=== PATIENT | male | born 1975 | race Caucasian/White ===

== ENCOUNTER 2020-06-17 12:28 | Day surgery (SDC) | payer MEDICAID ==
[~2020-06-17] VITALS: Ht 175.3 cm; Wt 64.0 kg
[2020-06-17] VITALS (10 sets, daily range): BP systolic 143–189; BP diastolic 89–116
[~2020-06-17 12:28] MED LIST: BENA20TA2 PO; CLON-473 PO; HYDR-4069 PO; HYDR-4353 PO; KEP500T PO; LORA0.5T PO; SEVE800T8 PO; TACR1CAP PO
[2020-06-17] MEDS ORDERED: tPA-cathflo 2 MG/2 ml IV flush ONE (13:17)
[2020-06-17 13:39] LABS: BASOPHILS # (AUTO) 0.1 X10'3 (0-0.2); BASOPHILS % (AUTO) 1.4 % (0-1); EOSINOPHILS # (AUTO) 0.5 X10'3 (0-0.9); EOSINOPHILS % (AUTO) 7.3 % (0-6); HEMATOCRIT 26.2 % (42.0-52.0); HEMOGLOBIN 8.3 g/dl (14.0-17.9); LYMPHOCYTES # (AUTO) 1.2 X10'3 (1.1-4.8); MEAN CORPUSCULAR HEMOGLOBIN 25.6 PG (27.0-31.0); MEAN CORPUSCULAR HGB CONC 31.7 g/dL (33.0-36.5); MEAN CORPUSCULAR VOLUME 80.8 FL (78-98); MEAN PLATELET VOLUME 8.3 FL (7.4-10.4); MONOCYTES # (AUTO) 0.4 X10'3 (0-0.9); MONOCYTES % (AUTO) 6.2 % (2-12); NEUTROPHILS # (AUTO) 4.6 X10'3 (1.8-7.7); NEUTROPHILS % (AUTO) 67.1 % (42-75); PLATELET COUNT 244 X10'3 (140-440); RED BLOOD COUNT 3.24 X10'6 (4.70-6.10); RED CELL DISTRIBUTION WIDTH 21.7 % (11.5-14.5); WHITE BLOOD COUNT 6.9 X10'3 (4.5-11.0)
[2020-06-17 13:43] LABS: ALBUMIN 2.8 G/DL (3.4-5.0); ANION GAP 18 (8-16); BLOOD UREA NITROGEN 111 MG/DL (7-18); CALCIUM 8.4 MG/DL (8.5-10.1); CHLORIDE 99 MMOL/L (99-107); CREATININE 10.11 MG/DL (0.60-1.10); GLUCOSE 83 MG/DL (70-104); SODIUM 134 MMOL/L (135-145); TOTAL CARBON DIOXIDE 17.2 MMOL/L (24-32); eGFR 6 ML/MIN
[2020-06-17 13:48] LABS: POTASSIUM 8.1 MMOL/L (3.5-5.1)
[2020-06-17] MEDS ORDERED: calcium chloride 100 MG/1 ML inj IV ONE (14:05)
[2020-06-17] MEDS ORDERED: insulin regular, human U-100 3ml vial - multi-dose IV ONE (14:05)
[2020-06-17] MEDS ORDERED: albuterol 2.5 MG/3 ML nebule CONTNEB PRN (14:05)
[2020-06-17] MEDS ORDERED: dextrose 50%-water 50ml dispensing syringe IV ONE (14:05)
[2020-06-17] MEDS ORDERED: PATIROMER CALCIUM SORBITEX 8.4 GM POWD.PACK PO SCH (14:05)
[2020-06-17] MEDS ORDERED: sodium bicarbonate (8.4%) 1 mEq/ml syringe IV ONE (14:05)
--- NOTE | 2020-06-17 14:05 | NUR ---
DR RICE CALLED, REPORTED POTASSIUM LEVEL OF 8.1. STATES WILL CALL DIALYSIS REGISTERED NURSE AND GET BACK TO ME. DR RICE ARRIVED IN UNIT. REVIEWED EACH ORDER FROM DR SIMEON. IN PROGRESS. PT VS STABLE. RT PAGED. Addendum: 06/17/20 at 1542 by Sada Meza RN Amended: Links added.
[2020-06-17 14:15] LABS: ROULEAUX 1+
--- NOTE | 2020-06-17 14:15 | NUR ---
CALL TO PHARMACY FOR MEDICATION ORDERS TO BE FILL, STAT NEED. PHARMACIST STATES UNDERSTANDING Addendum: 06/17/20 at 1558 by Sada Meza RN Amended: Links added.
[2020-06-17 14:16] LABS: ANISOCYTOSIS 3+; PLATELET ESTIMATE NORMAL
[2020-06-17 14:17] LABS: LARGE PLATELETS FEW
[2020-06-17 14:18] LABS: HYPOCHROMASIA 1+; SCHISTOCYTES FEW
--- NOTE | 2020-06-17 16:00 | NUR ---
PT 02 SAT IN MID 90'S, AFTER RT TX. FOR HIGH POTASSIUM. Addendum: 06/17/20 at 1746 by Sada Meza RN Amended: Links added.
--- NOTE | 2020-06-17 16:00 | NUR ---
CALL TO [facility] DR RICE ALREADY AWARE OF REPEATED POTASSIUM LEVEL OF 7.[address] CHURCHILL ORDERS COMPLETED. DR RICE CONTACTING DR SIMEON TO CONSULT FOR NEXT ACTION. [facility] CALLED BACK, PT TO TO TO [facility] FOR TEMPORARY DIALYSIS CATHETER. THEN TO BE ADMITTED. Addendum: 06/17/20 at 1603 by Sada Meza RN Amended: Links added.
[2020-06-17] MEDS ORDERED: LIDOcaine 1%/PF 5ML 10 MG/ML VIAL ONE (16:05)
[2020-06-17] MEDS ORDERED: fentaNYL/PF 50MCG/1 ML 2ML syringe ONE (16:05)
[2020-06-17] MEDS ORDERED: heparin 1,000unit/ml 10ml vial 10 ML ONE (16:06)
[2020-06-17] MEDS ORDERED: normal saline 1000ml 250 ML IV PRN (18:20)
[2020-06-17] MEDS ORDERED: bisacodyl 10mg suppository rectal RC PRN (18:20)
[2020-06-17] MEDS ORDERED: heparin 1,000 units/ml 10ml inj HE ONE ×2 (18:20)
[2020-06-17] MEDS ORDERED: ondansetron/PF 4mg/2ml inj IV PRN (18:20)
[2020-06-17] MEDS ORDERED: heparin 1,000unit/ml 10ml vial 10 ML IV ONE (18:20)
[2020-06-17] MEDS ORDERED: acetaminophen 325mg tablet PO PRN (18:20)
[2020-06-17] MEDS ORDERED: ipratropium/albuterol 3ml nebule NEB PRN (18:20)
[2020-06-17] MEDS ORDERED: epoetin 20,000 units/ml inj IV ONE (18:20)
[2020-06-17] MEDS ORDERED: CINA30TA7 PO (19:30)
[2020-06-17] MEDS ORDERED: LORA-268 PO (19:30)
[2020-06-17] MEDS ORDERED: CLON0.2T PO (19:30)
[2020-06-17] MEDS ORDERED: NIFE60TA79 PO (19:30)
[2020-06-17] MEDS ORDERED: docusate sod 100mg capsule PO SCH (20:00)
[2020-06-17] MEDS ORDERED: HYDROcodone/acetaminophen 10/325mg tab PO SCH (20:00)
[2020-06-17] MEDS ORDERED: tacrolimus anhydrous 1mg capsule PO SCH (20:00)
[2020-06-17] MEDS ORDERED: cloNIDine 0.1 mg tablet PO SCH (20:00)
[2020-06-17] MEDS ORDERED: LORazepam 0.5 MG tablet PO SCH (20:00)
[2020-06-17] MEDS ORDERED: heparin, porcine 5000 units/ml vial SQ SCH (20:00)
[2020-06-17] MEDS ORDERED: levetiracetam 250mg tablet PO SCH (20:00)
[2020-06-17] MEDS ORDERED: ipratropium/albuterol 3ml nebule NEB SCH (21:00)
[2020-06-18] MEDS ORDERED: sevelamer carbonate 800mg tablet PO SCH
[2020-06-18] MEDS ORDERED: lisinopril 20mg tablet PO SCH (08:00)
== END 2020-06-17 16:17 | disposition home or self-care (01) ==
LOC: SSTAY O 12:28
PROVIDERS: ATTEND Radiology Diagnostic Radiology
DX: N18.9 Chronic kidney disease, unspecified (principal); T82.858A Stenosis of other vascular prosthetic devices, implants and grafts, initial encounter; Z79.899 Other long term (current) drug therapy; Z83.3 Family history of diabetes mellitus; Y83.2 Surgical operation with anastomosis, bypass or graft as the cause of abnormal reaction of the patient, or of later complication, without mention of misadventure at the time of the procedure; Y92.89 Other specified places as the place of occurrence of the external cause
CPT/HCPCS: 36415; 36556; 76937; 77001; 80048; 82948; 84132; 85025; 94640; C1894; J1644; J2997; J3010; 85008; 99152; 99153; A9270; J1815

== ENCOUNTER 2020-06-17 16:19 | Inpatient (IN) | payer MEDICAID ==
[~2020-06-17] VITALS: Ht 175.3 cm; Wt 64.0 kg
[2020-06-17] MEDS ORDERED: midazolam 2 mg/2 ml injection ONE (16:22)
[2020-06-17] MEDS ORDERED: vancomycin/NS 1 GM ADD-VANTAGE 250 ML IV PRN (16:30)
[2020-06-17] MEDS ORDERED: epoetin 20,000 units/ml inj IV ONE (16:30)
[2020-06-17] MEDS ORDERED: bisacodyl 10mg suppository rectal RC PRN (16:30)
[2020-06-17] MEDS ORDERED: acetaminophen 325mg tablet PO PRN (16:30)
[2020-06-17] MEDS ORDERED: ondansetron/PF 4mg/2ml inj IV PRN (16:30)
[2020-06-17] MEDS ORDERED: heparin 1,000unit/ml 10ml vial 10 ML IV ONE (16:30)
[2020-06-17] MEDS ORDERED: normal saline 1000ml 250 ML IV PRN (16:30)
[2020-06-17] MEDS ORDERED: heparin 1,000 units/ml 10ml inj HE ONE ×2 (16:35)
[2020-06-17 19:00] VITALS: BP 200/115
[2020-06-17] MEDS ORDERED: vancomycin/NS 1 GM ADD-VANTAGE 250 ML IV ONE ×2 (19:00→19:10)
[2020-06-17] MEDS ORDERED: CLON0.2T PO (19:30)
[2020-06-17] MEDS ORDERED: NIFE60TA79 PO (19:30)
[2020-06-17] MEDS ORDERED: LORA-268 PO (19:30)
[2020-06-17] MEDS ORDERED: CINA30TA7 PO (19:30)
[2020-06-17] MEDS ORDERED: LORazepam 0.5 MG tablet PO PRN ×2 (20:00→20:03)
[2020-06-17] MEDS ORDERED: HYDROcodone/acetaminophen 10/325mg tab PO SCH (20:00)
[2020-06-17] MEDS: levetiracetam 250mg tablet PO SCH (21:08)
[2020-06-17] MEDS: heparin, porcine 5000 units/ml vial SQ SCH (21:08)
[2020-06-17] MEDS: docusate sod 100mg capsule PO SCH (21:09)
[2020-06-17] MEDS: cloNIDine 0.1 mg tablet PO SCH (21:09)
[2020-06-17] MEDS: NIFEdipine XL 30mg tablet PO SCH (21:10)
[2020-06-17 22:16] VITALS: BP 170/115
[2020-06-17] MEDS: normal saline 1000ml 1,000 ML IV SCH (22:46)
[2020-06-17] MEDS: lisinopril 20mg tablet PO SCH (22:46)
[2020-06-18] VITALS (7 sets, daily range): BP systolic 145–200; BP diastolic 91–120
--- NOTE | 2020-06-18 06:00 | NUR ---
Patient in room PCU 3012. I have received report from AALIYAH GARCIA and had the opportunity to ask questions and assume patient care.
--- NOTE | 2020-06-18 06:10 | NUR ---
Patient in room PCU 3012. I have received report from Elsie GARCIA and had the opportunity to ask questions and assume patient care.
--- NOTE | 2020-06-18 06:16 | NUR ---
Problems reprioritized. Patient report given, questions answered & plan of care reviewed with Lisandro and Sherri Rns.
[2020-06-18] MEDS: cloNIDine 0.1 mg tablet PO SCH ×3 (06:41→20:16)
[2020-06-18] MEDS: NIFEdipine XL 30mg tablet PO SCH ×2 (06:41→20:16)
[2020-06-18] MEDS: HYDROcodone/acetaminophen 10/325mg tab PO PRN ×2 (06:48→17:14)
[2020-06-18 07:36] LABS: BASOPHILS % (AUTO) 0.8 % (0-1); EOSINOPHILS # (AUTO) 0.1 X10'3 (0-0.9); EOSINOPHILS % (AUTO) 3.1 % (0-6); HEMATOCRIT 27.3 % (42.0-52.0); HEMOGLOBIN 8.7 g/dl (14.0-17.9); LYMPHOCYTES # (AUTO) 0.8 X10'3 (1.1-4.8); LYMPHOCYTES % (AUTO) 17.7 % (21-51); MEAN CORPUSCULAR HEMOGLOBIN 25.3 PG (27.0-31.0); MEAN CORPUSCULAR HGB CONC 31.8 g/dL (33.0-36.5); MEAN CORPUSCULAR VOLUME 79.6 FL (78-98); MEAN PLATELET VOLUME 8.4 FL (7.4-10.4); MONOCYTES # (AUTO) 0.2 X10'3 (0-0.9); MONOCYTES % (AUTO) 3.8 % (2-12); NEUTROPHILS # (AUTO) 3.5 X10'3 (1.8-7.7); NEUTROPHILS % (AUTO) 74.6 % (42-75); PLATELET COUNT 204 X10'3 (140-440); RED BLOOD COUNT 3.43 X10'6 (4.70-6.10); RED CELL DISTRIBUTION WIDTH 22.1 % (11.5-14.5); WHITE BLOOD COUNT 4.7 X10'3 (4.5-11.0)
[2020-06-18 07:51] LABS: ALANINE AMINOTRANSFERASE 27 U/L (12-78); ALBUMIN 2.7 G/DL (3.4-5.0); ALBUMIN/GLOBULIN RATIO 0.4 (1.1-1.5); ALKALINE PHOSPHATASE 253 IU/L (46-116); ANION GAP 14 (8-16); ASPARTATE AMINO TRANSFERASE 30 U/L (10-37); BILIRUBIN,TOTAL 0.5 MG/DL (0.1-1.0); BLOOD UREA NITROGEN 51 MG/DL (7-18); BUN/CREATININE RATIO 8.9 (5.4-32.0); CALCIUM 8.4 MG/DL (8.5-10.1); CHLORIDE 100 MMOL/L (99-107); CREATININE 5.75 MG/DL (0.60-1.10); GLUCOSE 78 MG/DL (70-104); MAGNESIUM 2.5 MG/DL (1.5-2.4); POTASSIUM 5.8 MMOL/L (3.5-5.1); SODIUM 137 MMOL/L (135-145); TOTAL CARBON DIOXIDE 23.3 MMOL/L (24-32); TOTAL PROTEIN 9.3 G/DL (6.4-8.2); VANCOMYCIN,RANDOM 27.5 UG/ML; eGFR 11 ML/MIN
[2020-06-18] MEDS: lisinopril 20mg tablet PO SCH ×2 (08:00→17:13)
[2020-06-18] MEDS: cinacalcet 30mg tablet PO SCH (08:51)
[2020-06-18] MEDS: sevelamer carbonate 800mg tablet PO SCH ×3 (08:51→18:53)
[2020-06-18] MEDS: heparin, porcine 5000 units/ml vial SQ SCH ×2 (08:51→18:16)
[2020-06-18] MEDS: levetiracetam 250mg tablet PO SCH ×2 (08:51→20:16)
[2020-06-18] MEDS: docusate sod 100mg capsule PO SCH ×2 (08:51→20:17)
[2020-06-18] MEDS: normal saline 1000ml 1,000 ML IV SCH (08:59)
[2020-06-18 09:21] LABS: ANISOCYTOSIS 3+; HYPOCHROMASIA 1+; MICROCYTOSIS 1+; PLATELET ESTIMATE NORMAL; SCHISTOCYTES FEW
--- NOTE | 2020-06-18 18:00 | NUR ---
Problems reprioritized. Patient report given, questions answered & plan of care reviewed with Renee GARCIA.
--- NOTE | 2020-06-18 18:00 | NUR ---
Orientee documentation: I have reviewed and agree with all interventions, assessments performed and documented by Heena GARCIA.
--- NOTE | 2020-06-18 18:15 | NUR ---
Problems reprioritized. Patient report given, questions answered & plan of care reviewed with
--- NOTE | 2020-06-18 18:30 | NUR ---
Patient in room PCU 3012. I have received report from JLRN /MARISOL RN and had the opportunity to ask questions and assume patient care.
[2020-06-18] MEDS: lactobacillus rhamnosus 10,000 MMU CELLS/CAPSULE PO SCH (20:16)
[2020-06-19 02:00] VITALS: BP 145/93
[2020-06-19 06:00] VITALS: BP 172/105
--- NOTE | 2020-06-19 06:00 | NUR ---
Patient in room PCU 3012. I have received report from JULIA and had the opportunity to ask questions and assume patient care.
--- NOTE | 2020-06-19 06:05 | NUR ---
Patient in room PCU 3012. I have received report from Julia GARCIA and had the opportunity to ask questions and assume patient care.
--- NOTE | 2020-06-19 06:08 | NUR ---
Problems reprioritized. Patient report given, questions answered & plan of care reviewed with JOSE PARIKH AND JOSE DAMON.
[2020-06-19 07:22] LABS: BASOPHILS # (AUTO) 0.1 X10'3 (0-0.2); BASOPHILS % (AUTO) 1.8 % (0-1); EOSINOPHILS % (AUTO) 1.1 % (0-6); HEMATOCRIT 24.2 % (42.0-52.0); HEMOGLOBIN 7.8 g/dl (14.0-17.9); LYMPHOCYTES # (AUTO) 1.1 X10'3 (1.1-4.8); LYMPHOCYTES % (AUTO) 26.8 % (21-51); MEAN CORPUSCULAR HEMOGLOBIN 25.5 PG (27.0-31.0); MEAN CORPUSCULAR VOLUME 79.5 FL (78-98); MEAN PLATELET VOLUME 7.1 FL (7.4-10.4); MONOCYTES # (AUTO) 0.2 X10'3 (0-0.9); MONOCYTES % (AUTO) 5.5 % (2-12); NEUTROPHILS # (AUTO) 2.7 X10'3 (1.8-7.7); NEUTROPHILS % (AUTO) 64.8 % (42-75); PLATELET COUNT 162 X10'3 (140-440); RED BLOOD COUNT 3.05 X10'6 (4.70-6.10); RED CELL DISTRIBUTION WIDTH 21.8 % (11.5-14.5); WHITE BLOOD COUNT 4.1 X10'3 (4.5-11.0)
[2020-06-19 07:40] LABS: ALANINE AMINOTRANSFERASE 16 U/L (12-78); ALBUMIN 2.4 G/DL (3.4-5.0); ALBUMIN/GLOBULIN RATIO 0.4 (1.1-1.5); ALKALINE PHOSPHATASE 205 IU/L (46-116); ANION GAP 16 (8-16); ASPARTATE AMINO TRANSFERASE 26 U/L (10-37); BILIRUBIN,TOTAL 0.4 MG/DL (0.1-1.0); BLOOD UREA NITROGEN 78 MG/DL (7-18); BUN/CREATININE RATIO 9.7 (5.4-32.0); CALCIUM 8.4 MG/DL (8.5-10.1); CHLORIDE 97 MMOL/L (99-107); CREATININE 8.08 MG/DL (0.60-1.10); GLUCOSE 76 MG/DL (70-104); MAGNESIUM 2.6 MG/DL (1.5-2.4); PHOSPHORUS 5.5 MG/DL (2.3-4.5); SODIUM 133 MMOL/L (135-145); TOTAL CARBON DIOXIDE 20.2 MMOL/L (24-32); TOTAL PROTEIN 8.4 G/DL (6.4-8.2); VANCOMYCIN,RANDOM 22.5 UG/ML; eGFR 7 ML/MIN
[2020-06-19 07:47] LABS: POTASSIUM 6.6 MMOL/L (3.5-5.1)
[2020-06-19] MEDS ORDERED: heparin 1,000 units/ml 10ml inj HE ONE ×2 (08:00)
[2020-06-19] MEDS: heparin, porcine 5000 units/ml vial SQ SCH (08:00)
[2020-06-19] MEDS ORDERED: normal saline 1000ml 250 ML IV PRN (08:00)
[2020-06-19] MEDS ORDERED: heparin 1,000unit/ml 10ml vial 10 ML IV ONE (08:00)
[2020-06-19] MEDS: sevelamer carbonate 800mg tablet PO SCH ×3 (08:00→15:34)
[2020-06-19] MEDS ORDERED: epoetin 20,000 units/ml inj IV ONE (08:00)
--- NOTE | 2020-06-19 08:15 | NUR ---
Spoke with Angio nurse concerning Pt's scheduled fistulogram today. Pt's morning potassium is 6.6. Pt will first receive HD this morning, followed by a potassium recheck after HD. Pt will then go for fistulogram in afternoon.
[2020-06-19 08:49] LABS: ANISOCYTOSIS 3+; HYPOCHROMASIA 1+; MICROCYTOSIS 1+; PLATELET ESTIMATE NORMAL
[2020-06-19 08:50] LABS: SCHISTOCYTES FEW
[2020-06-19 08:51] LABS: POLYCHROMASIA FEW
[2020-06-19] MEDS: cinacalcet 30mg tablet PO SCH (09:04)
[2020-06-19] MEDS: lactobacillus rhamnosus 10,000 MMU CELLS/CAPSULE PO SCH (09:04)
[2020-06-19] MEDS: levetiracetam 250mg tablet PO SCH (09:05)
[2020-06-19] MEDS: docusate sod 100mg capsule PO SCH (09:07)
[2020-06-19] MEDS: lisinopril 20mg tablet PO SCH (09:07)
[2020-06-19] MEDS: NIFEdipine XL 30mg tablet PO SCH (09:07)
[2020-06-19] MEDS: cloNIDine 0.1 mg tablet PO SCH ×2 (09:08→15:35)
--- NOTE | 2020-06-19 09:08 | NUR ---
Spoke with dialysis nurse concerning Pt's morning blood pressure meds. Pt's current BP is 201/100. Okayed by Dialysis nurse to give all morning BP meds: catapres .4mg, lininopril 20mg and Procardia XL 60mg.
[2020-06-19] MEDS ORDERED: tPA-cathflo 2 MG/2 ml IV flush ONE (09:13)
[2020-06-19] MEDS ORDERED: LIDOcaine 1%/PF 5ML 10 MG/ML VIAL ONE ×2 (09:14→13:02)
[2020-06-19 11:00] VITALS: BP 149/100
[2020-06-19 11:55] LABS: HBSAG SCREEN Negative (Negative)
[2020-06-19] MEDS ORDERED: midazolam 2 mg/2 ml injection ONE ×3 (13:02→13:44)
[2020-06-19] MEDS ORDERED: fentaNYL/PF 50MCG/1 ML 2ML syringe ONE ×2 (13:03→13:44)
[2020-06-19] MEDS ORDERED: iohexol 300 MG/1 ML 50ml polymer ONE (13:03)
[2020-06-19] MEDS ORDERED: heparin 1,000 UNITS/NS 500ml 500 ML ONE (13:03)
[2020-06-19] MEDS ORDERED: iohexol 300mg/ml 100ml inj. ONE (13:45)
--- NOTE | 2020-06-19 14:30 | NUR ---
Pt returned from Angio. Harjinder cath removed and dressing applied. Dressing CDI. Pt will remain flat in bed for 3 hours. Vitals WNL. Will continue to monitor Pt.
[2020-06-19] MEDS ORDERED: TACR1CAP24 PO (15:41)
--- NOTE | 2020-06-19 17:20 | NUR ---
Pt DC'd home with brother. IV removed, canula intact. Tele-box removed and returned to tele-tech. Per Dr. Hankins; Pt is stable for DC. Pt alert and oriented and vitals WNL. DC paperwork printed out and gone over with Pt. Allowed Pt to ask questions concerning DC and then answered them. Pt will have Dialysis this Wednesday at the clinic he goes to, he will also continue to get his Vancomycin during his HD. Pt's belongings gathered and sent with Pt. Pt wheeled down to lobby in wheelchair by nurse. Pt left with brother in private vehicle.
[2020-06-20] MEDS ORDERED: VANCOMYCIN LEVEL IV SCH (03:00)
== END 2020-06-19 17:00 | disposition home or self-care (01) | DRG 182 ==
LOC: MED 3N 16:30 → PCU 3S 18:38
PROVIDERS: ADMIT Internal Medicine Critical Care Medicine; ATTEND Internal Medicine Critical Care Medicine
PROC: 027V3ZZ Dilation of Superior Vena Cava, Percutaneous Approach (ICD-10-PCS; principal; 2020-06-19)
PROC: B5181ZA Fluoroscopy of Superior Vena Cava using Low Osmolar Contrast, Guidance (ICD-10-PCS; 2020-06-19)
PROC: 3E03317 Introduction of Other Thrombolytic into Peripheral Vein, Percutaneous Approach (ICD-10-PCS; 2020-06-19)
PROC: 03773ZZ Dilation of Right Brachial Artery, Percutaneous Approach (ICD-10-PCS; 2020-06-19)
DX: T82.818A Embolism due to vascular prosthetic devices, implants and grafts, initial encounter (principal); E87.5 Hyperkalemia; Z99.2 Dependence on renal dialysis; Z83.3 Family history of diabetes mellitus; F17.210 Nicotine dependence, cigarettes, uncomplicated; I12.0 Hypertensive chronic kidney disease with stage 5 chronic kidney disease or end stage renal disease; N18.6 End stage renal disease; Y83.2 Surgical operation with anastomosis, bypass or graft as the cause of abnormal reaction of the patient, or of later complication, without mention of misadventure at the time of the procedure; Y92.89 Other specified places as the place of occurrence of the external cause; F41.9 Anxiety disorder, unspecified; Z94.0 Kidney transplant status; Z20.828 Contact with and (suspected) exposure to other viral communicable diseases
CPT/HCPCS: 36415; 36556; 36902; 76937; 77001; 80048; 80053; 80202; 82948; 83735; 84100; 84132; 85008; 85025; 87081; 87340; 94640; 97161; 97530; 99152; 99153; A9270; C1725; C1769; C1894; G0378; J0604; J1644; J1815; J2250; J2997; J3010; J3370; J7030; Q4081; Q9967

== ENCOUNTER 2020-12-16 08:38 | Day surgery (SDC) | payer MEDICAID ==
[~2020-12-16] VITALS: Ht 175.3 cm; Wt 63.8 kg
[~2020-12-16 08:38] MED LIST changes: +CINA30TA7 PO; -CLON-473 PO; +CLON0.2T PO; -HYDR-4069 PO; +LORA-268 PO; -LORA0.5T PO; +NIFE60TA79 PO; -TACR1CAP PO; +TACR1CAP24 PO
[2020-12-16 08:50] VITALS: BP 192/130
[2020-12-16] MEDS ORDERED: normal saline 1000ml 1,000 ML IV SCH (09:05)
[2020-12-16 09:44] LABS: BASOPHILS % (AUTO) 0.5 % (0-1); EOSINOPHILS # (AUTO) 0.5 X10'3 (0-0.9); EOSINOPHILS % (AUTO) 20.2 % (0-6); HEMATOCRIT 28.1 % (42.0-52.0); HEMOGLOBIN 8.9 g/dl (14.0-17.9); LYMPHOCYTES # (AUTO) 0.6 X10'3 (1.1-4.8); LYMPHOCYTES % (AUTO) 22.3 % (21-51); MEAN CORPUSCULAR HEMOGLOBIN 27.1 PG (27.0-31.0); MEAN CORPUSCULAR HGB CONC 31.5 g/dL (33.0-36.5); MEAN CORPUSCULAR VOLUME 86.1 FL (78-98); MEAN PLATELET VOLUME 7.2 FL (7.4-10.4); MONOCYTES # (AUTO) 0.2 X10'3 (0-0.9); MONOCYTES % (AUTO) 8.2 % (2-12); NEUTROPHILS # (AUTO) 1.2 X10'3 (1.8-7.7); NEUTROPHILS % (AUTO) 48.8 % (42-75); PLATELET COUNT 110 X10'3 (140-440); RED BLOOD COUNT 3.27 X10'6 (4.70-6.10); RED CELL DISTRIBUTION WIDTH 18.4 % (11.5-14.5); WHITE BLOOD COUNT 2.5 X10'3 (4.5-11.0)
[2020-12-16] MEDS ORDERED: cloNIDine 0.1 mg tablet PO ONE (09:45)
[2020-12-16] MEDS ORDERED: NIFEdipine XL 30mg tablet PO ONE (09:45)
[2020-12-16 10:14] LABS: ALBUMIN 2.6 G/DL (3.4-5.0); ANION GAP 16 (8-16); BLOOD UREA NITROGEN 27 MG/DL (7-18); BUN/CREATININE RATIO 5.7 (5.4-32.0); CALCIUM 6.4 MG/DL (8.5-10.1); CHLORIDE 107 MMOL/L (99-107); CREATININE 4.74 MG/DL (0.60-1.10); GLUCOSE 64 MG/DL (70-104); POTASSIUM 3.4 MMOL/L (3.5-5.1); SODIUM 142 MMOL/L (135-145); TOTAL CARBON DIOXIDE 19.5 MMOL/L (24-32); eGFR 14 ML/MIN
[2020-12-16 11:30] VITALS: BP 160/113
[2020-12-16] MEDS ORDERED: midazolam 1 mg/ML 2ml injection ONE (11:32)
[2020-12-16] MEDS ORDERED: LIDOcaine 1%/PF 5ML 10 MG/ML VIAL ONE (11:32)
[2020-12-16] MEDS ORDERED: fentaNYL/PF 50MCG/1 ML 2ML syringe ONE (11:32)
[2020-12-16] MEDS ORDERED: iohexol 300mg/ml 100ml inj. ONE (11:32)
[2020-12-16] MEDS ORDERED: heparin 1,000 UNITS/NS 500ml 500 ML ONE (11:32)
[2020-12-16 11:58] LABS: ANISOCYTOSIS 2+; PLATELET ESTIMATE DECREASED; TOTAL CELLS COUNTED 100
[2020-12-16 11:59] LABS: ELLIPTOCYTES FEW
[2020-12-16] MEDS ORDERED: tPA-cathflo 2 MG/2 ml IV flush ONE ×2 (12:35→12:36)
[2020-12-16] MEDS ORDERED: heparin 1,000unit/ml 10ml vial 10 ML ONE (12:40)
[2020-12-16 13:30] VITALS: BP 149/87
--- NOTE | 2020-12-16 13:30 | NUR ---
Patient back from IR. IR nurses at bedside. Bleeding noted to right arm procedure site. Pressure applied by IR nurses until no further bleeding noted. Dressed with 4x4's and foam tape.
[2020-12-16 13:45] VITALS: BP 150/95
[2020-12-16 14:00] VITALS: BP 135/86
[2020-12-16 14:15] VITALS: BP 140/84
== END 2020-12-16 15:00 | disposition home or self-care (01) ==
LOC: SSTAY O 08:38 → EDSTATUS 10:30 → SSTAY O 15:00
PROVIDERS: ATTEND Radiology Vascular & Interventional Radiology
DX: T82.868A Thrombosis due to vascular prosthetic devices, implants and grafts, initial encounter (principal); I10 Essential (primary) hypertension; F17.210 Nicotine dependence, cigarettes, uncomplicated; F12.90 Cannabis use, unspecified, uncomplicated; Z94.0 Kidney transplant status; Z20.822 Contact with and (suspected) exposure to COVID-19; Z83.3 Family history of diabetes mellitus; Y83.2 Surgical operation with anastomosis, bypass or graft as the cause of abnormal reaction of the patient, or of later complication, without mention of misadventure at the time of the procedure; Y92.89 Other specified places as the place of occurrence of the external cause
CPT/HCPCS: 36415; 36905; 80048; 85025; 85610; 87635; 99152; 99153; C1725; C1769; C1894; C9803; J1644; J2250; J2997; J3010; J7030; Q9967; 85007

== ENCOUNTER 2021-06-15 17:38 | Emergency (ER) | payer MEDICAID | END 2021-06-15 19:29 | disposition left against medical advice (07) | LOC: ER 17:41 | DX: R03.0 Elevated blood-pressure reading, without diagnosis of hypertension (principal); Z53.21 Procedure and treatment not carried out due to patient leaving prior to being seen by health care provider ==

== ENCOUNTER 2024-05-05 09:01 | Day surgery (SDC) | payer MEDICAID ==
[2024-05-05] VITALS (10 sets, daily range): BP systolic 112–159; BP diastolic 64–91; PULSE 59–77; RESP 10–20; TEMP 98.1; O2SAT 92–96
[~2024-05-05] VITALS: Ht 175.3 cm; Wt 62.9 kg
[~2024-05-05 09:01] MED LIST changes: +NIFE-73 PO; -NIFE60TA79 PO
[2024-05-05] MEDS ORDERED: KEP500T PO (09:42)
[2024-05-05] MEDS ORDERED: LEVE500T PO (09:43)
[2024-05-05 10:17] LABS: BASOPHILS % (AUTO) 1.1 % (0-1); EOSINOPHILS # (AUTO) 0.3 X10'3 (0-0.9); EOSINOPHILS % (AUTO) 11.5 % (0-6); HEMATOCRIT 34.1 % (42.0-52.0); HEMOGLOBIN 11.1 g/dl (14.0-17.9); LYMPHOCYTES # (AUTO) 0.8 X10'3 (1.1-4.8); LYMPHOCYTES % (AUTO) 27.9 % (21-51); MEAN CORPUSCULAR HEMOGLOBIN 29.1 PG (27.0-31.0); MEAN CORPUSCULAR HGB CONC 32.4 g/dL (33.0-36.5); MEAN CORPUSCULAR VOLUME 89.7 FL (78-98); MEAN PLATELET VOLUME 7.4 FL (7.4-10.4); MONOCYTES # (AUTO) 0.2 X10'3 (0-0.9); NEUTROPHILS # (AUTO) 1.6 X10'3 (1.8-7.7); NEUTROPHILS % (AUTO) 53.5 % (42-75); PLATELET COUNT 139 X10'3 (140-440); RED BLOOD COUNT 3.81 X10'6 (4.70-6.10); RED CELL DISTRIBUTION WIDTH 16.1 % (11.5-14.5)
[2024-05-05 10:31] LABS: INR 1.1 INR; PROTHROMBIN TIME 11.6 SECONDS (9.0-12.0)
[2024-05-05 10:34] LABS: ALBUMIN 4.1 G/DL (3.4-5.0); ANION GAP 6 (8-16); BLOOD UREA NITROGEN 19 MG/DL (7-18); BUN/CREATININE RATIO 4.6 (10.0-20.0); CALCIUM 8.3 MG/DL (8.5-10.1); CHLORIDE 92 MMOL/L (99-107); CREATININE 4.09 MG/DL (0.60-1.10); GLUCOSE 98 MG/DL (70-104); MAGNESIUM 2.2 MG/DL (1.5-2.4); POTASSIUM 3.9 MMOL/L (3.5-5.1); SODIUM 135 MMOL/L (135-145); TOTAL CARBON DIOXIDE 37.1 MMOL/L (24-32); eCRCL 20 ML/MIN; eGFR 16 ML/MIN
[2024-05-05] MEDS: sodium bicarbonate 1meq/ml syr 150 ML in dextrose 5%-water 1,000 ML IV ONE (10:42)
[2024-05-05] MEDS: normal saline 1,000 ML IV SCH (10:42)
[2024-05-05] MEDS: diphenhydrAMINE 25mg capsule PO PRN (11:40)
[2024-05-05] MEDS ORDERED: fentaNYL/PF 50MCG/1 ML 2ML syringe ONE (12:57)
[2024-05-05] MEDS ORDERED: iohexol 350 MG/ML 50ML vial IV ONE ×2 (12:57→13:47)
[2024-05-05] MEDS ORDERED: midazolam 1 mg/ML 2ml injection ONE (12:57)
[2024-05-05] MEDS ORDERED: LIDOcaine 1% 30ml preserv. free vial ONE (12:57)
[2024-05-05] MEDS ORDERED: heparin 1,000unit/ml 10ml vial 10 ML ONE (12:58)
[2024-05-05] MEDS ORDERED: iohexol 350MG/ML 100ml bottle IV ONE ×2 (12:58→13:58)
[2024-05-05] MEDS ORDERED: ondansetron/PF 4mg/2ml inj IV PRN (15:10)
[2024-05-05] MEDS ORDERED: HYDROcodone/acetaminophen 5mg/325mg tablet PO PRN (15:10)
[2024-05-05] MEDS ORDERED: HYDROcodone/acetaminophen 10/325mg tab PO PRN (15:10)
[2024-05-05] MEDS ORDERED: proCHLORperazine 10 MG/2 ml inj IV PRN (15:10)
== END 2024-05-05 17:30 | disposition home or self-care (01) ==
LOC: SSTAY O 09:01
PROVIDERS: ATTEND Internal Medicine Cardiovascular Disease
DX: I34.0 Nonrheumatic mitral (valve) insufficiency (principal); I25.10 Atherosclerotic heart disease of native coronary artery without angina pectoris; I13.11 Hypertensive heart and chronic kidney disease without heart failure, with stage 5 chronic kidney disease, or end stage renal disease; N18.6 End stage renal disease; E89.2 Postprocedural hypoparathyroidism; F32.A Depression, unspecified; F12.90 Cannabis use, unspecified, uncomplicated; Z79.899 Other long term (current) drug therapy; Z99.2 Dependence on renal dialysis
CPT/HCPCS: 36415; 80048; 83735; 85025; 85610; 93005; 93458; 99152; 99153; J1644; J2250; J3010; J3490; J7030; J7070; Q9967; A6258; C1725; C1751; C1760; C1769; C1894

== ENCOUNTER 2024-07-06 09:05 | Outpatient (CLI) | payer MEDICAID ==
[~2024-07-06] VITALS: Ht 175.3 cm; Wt 61.2 kg
[~2024-07-06 09:05] MED LIST changes: -BENA20TA2 PO; -CINA30TA7 PO; -KEP500T PO; +LEVE500T PO; -LORA-268 PO; -SEVE800T8 PO
[2024-07-06] MEDS: albuterol 2.5 MG/3 ML nebule NEB PRN (09:48)
[2024-07-06 09:51] VITALS: PULSE 72; RESP 14; O2SAT 97
[2024-07-06 10:03] VITALS: PULSE 67; RESP 14
== END 2024-07-06 23:59 | disposition home or self-care (01) ==
LOC: RT 09:05
PROVIDERS: ATTEND Internal Medicine Pulmonary Disease
DX: Z01.818 Encounter for other preprocedural examination (principal); Z12.2 Encounter for screening for malignant neoplasm of respiratory organs; I25.10 Atherosclerotic heart disease of native coronary artery without angina pectoris; I51.7 Cardiomegaly; J90 Pleural effusion, not elsewhere classified; N26.1 Atrophy of kidney (terminal); R94.2 Abnormal results of pulmonary function studies; N25.0 Renal osteodystrophy; Z87.891 Personal history of nicotine dependence
CPT/HCPCS: 71271; 94060; 94727; 94729; 94760